=== PATIENT | male | born 1930 | race Caucasian/White ===

== ENCOUNTER → 2016-09-14 | Day surgery (SDC) | payer MEDICARE, OTHER ==
[~2016-09-14] MED LIST: ASPIRIN81 M2 PO; CLOPIDOGREL75 MG PO; LIPITOR PO; LISINOPRIL20 MG PO; NITRO-DUR1 EAC1; TOPROL XL100 MG PO
== END | disposition home or self-care (01) ==
LOC: CCSC 11:39
DX: M51.26 Other intervertebral disc displacement, lumbar region (principal); Z53.9 Procedure and treatment not carried out, unspecified reason
CPT/HCPCS: J1040; J2250

== ENCOUNTER → 2016-09-21 | Day surgery (SDC) | payer MEDICARE, OTHER ==
--- NOTE | ~2016-09-21 | OR ---
Unit #: [id number] #: [id number] Patient: CRISTIAN WYNNE [id number] [address] [address] [id number] O MR#: [id number] NAME: CRISTIAN WYNNE. ROOM: Date of Procedure: 09/21/2016 Admission Date: 09/21/2016 Surgeon: Asael Sterling M.D. : 1930 Attending Physician: Asael Sterling M.D. Primary Care Physician: Nayeli Lawrence M.D. SURGERY CENTER OPERATIVE NOTE PROCEDURE PERFORMED Lumbar epidural steroid injection under x-ray guided needle placement. PREOPERATIVE DIAGNOSES 1. Acute lumbar radiculitis. 2. Spinal stenosis, lumbosacral spine. 3. Herniated disk, L4-L5. 4. Herniated disk, L5-S1. 5. Degenerative joint disease, lumbosacral spine. 6. Degenerative disk disease, lumbosacral spine. 7. Facet arthrosis, lumbosacral spine. INDICATIONS FOR PROCEDURE The patient presents today with longstanding history of chronic lumbar radicular pain secondary to his underlying degenerative processes. He also has symptoms and signs compatible with facet arthralgia as well as x-ray documentation of underlying disk Borders, which would contribute to both of these painful symptoms. His pain is broken through his ongoing continuous conservative measures and is advancing in a crescendo pattern to the point that it is interfering with his activities of daily living. After discussing risks and benefits of proceeding today with a lumbar epidural steroid injection with a return date of 10/05/2016, the patient agreed this would be the appropriate course of action. We also discussed a referral to [facility] for potential facet joint with radiofrequency ablation therapy. DESCRIPTION OF PROCEDURE Following these discussion, the patient was taken to the operating room, where he was prepped and draped in a sterile manner. Standard monitors were applied. He refused all forms of sedation and lumbar epidural space was accessed at the L4-L5 level using loss of resistance technique and x-ray guidance. Needle placement was confirmed with the injection of 2 mL of Omnipaque. Approximately 80% of dye flow was in the superior direction. Following successful needle placement confirmation at the L4-L5 level with a total x-ray time of 9 seconds, the patient received an injectate containing 4 mL normal saline, 80 mg of methylprednisolone. He tolerated this procedure well and was discharged home with followup instructions, which include return dates as described above. At that point, he will most likely receive a dual needle L5-S1, L3-L4 injection. Dictated by.Raghavendra. Asael Sterling M.D. Unit #: [id number] #: [id number] Patient: CRISTIAN WYNNE ROEL/sha TD: 09/21/2016 21:46 JOB #: [id number] SURGERY CENTER OPERATIVE NOTE Page 1 of 1 X Fantasma Sterling MD X PROCEDURE OPERATIVE NOTE
== END | disposition home or self-care (01) ==
LOC: CCSC 10:04
DX: M51.16 Intervertebral disc disorders with radiculopathy, lumbar region (principal); M51.17 Intervertebral disc disorders with radiculopathy, lumbosacral region; M48.07 Spinal stenosis, lumbosacral region
CPT/HCPCS: J1040; J2250

== ENCOUNTER → 2016-10-05 | Day surgery (SDC) | payer MEDICARE, OTHER ==
--- NOTE | ~2016-10-05 | OR ---
Unit #: [id number] #: [id number] Patient: CRISTIAN WYNNE [id number] [address] [address] [id number] O MR#: [id number] NAME: CRISTIAN WYNNE. ROOM: Date of Procedure: 10/05/2016 Admission Date: 10/05/2016 Surgeon: Asael Sterling M.D. : 1930 Attending Physician: Fantasma Sterling Primary Care Physician: Nayeli Lawrence M.D. SURGERY CENTER OPERATIVE NOTE PROCEDURE PERFORMED Lumbar epidural steroid injection under x-ray guided needle placement. PREOPERATIVE DIAGNOSES 1. Acute lumbar radiculitis. 2. Spinal stenosis, lumbosacral spine. 3. Degenerative joint disease, lumbosacral spine. 4. Degenerative disk disease, lumbosacral spine. INDICATIONS FOR PROCEDURE The patient presents today status post one previous lumbar approach epidural steroid injection for an acute radiculitis, which had failed to respond to conservative therapy. He has a [facility] consult pending for potential facet joint injections with radiofrequency ablation. As far as the epidural for his radicular pain goes, he states that he got excellent results with almost 100% resolution of his symptoms. However, in the intervening time between his initial visit and today's visit, he has had the return of his symptoms in a crescendo pattern, which has reached a point where they are interfering with his activities of daily living. This return of his pain has broken through his usual and ongoing continuous conservative measures. After discussing the risks and benefits of proceeding today with a lumbar approach epidural steroid injection utilizing dual needle access technique, the patient agreed this would be the appropriate course of action. DESCRIPTION OF PROCEDURE He was then taken to the operating room, where he was prepped and draped in sterile manner. Standard monitors were applied. He was sedated with no medications. He refused all forms of sedation, and the lumbar epidural space accessed at the L5-S1 and the L3-4 levels using loss of resistance technique and x-ray guidance. Needle placement was confirmed with the injection of 2 mL of Omnipaque at each level. At the L5-S1 level, there was almost 80% flow in the inferior direction. However, at the L3-4 level, there was good flow superiorly and inferiorly to the point that we did feel we got adequate L4-5 coverage with this dual needle placement today. Following successful needle placement confirmation, which required an x-ray time of 9 seconds, the patient received an injectate containing 4 mL of normal saline, 40 mg of methylprednisolone at each site for a total injectate volume of 8 mL of normal saline and 80 mg of methylprednisolone. He tolerated this procedure well. He was discharged home with followup instructions, which include an offer to return to this clinic as early as 01/11/2017 if we could be of further service to him. He was instructed if he was asymptomatic at that time, to simply follow up with this clinic Unit #: [id number] #: [id number] Patient: CRISTIAN WYNNE and/or his primary and referring provider until such time as we could be of service. Dictated by... Preston De La O/sha TD: 10/05/2016 13:53 JOB #: [id number] SURGERY CENTER OPERATIVE NOTE Page 1 of 1 X Fantasma Sterling MD PROCEDURE OPERATIVE NOTE
== END | disposition home or self-care (01) ==
LOC: CCSC 09:25
DX: M51.17 Intervertebral disc disorders with radiculopathy, lumbosacral region (principal); M47.27 Other spondylosis with radiculopathy, lumbosacral region; M48.06 Spinal stenosis, lumbar region
CPT/HCPCS: J1040; J2250

== ENCOUNTER → 2017-01-11 | Day surgery (SDC) | payer MEDICARE, OTHER ==
--- NOTE | ~2017-01-11 | OR ---
Unit #: [id number] #: [id number] Patient: CRISTIAN WYNNE [id number] [address] [address] [id number] O MR#: [id number] NAME: CRISTIAN WYNNE. ROOM: Date of Procedure: 01/11/2017 Admission Date: 01/11/2017 Surgeon: Asael Sterling M.D. : 1930 Attending Physician: Asael Sterling M.D. Primary Care Physician: Nayeli Lawrence M.D. SURGERY CENTER OPERATIVE NOTE PROCEDURE PERFORMED Lumbar epidural steroid injection under x-ray guided needle placement. PREOPERATIVE DIAGNOSES 1. Acute lumbar radiculitis. 2. Spinal stenosis, lumbosacral spine. 3. Anterolisthesis, L3-L4. 4. Degenerative joint disease, lumbosacral spine. 5. Degenerative disk disease, lumbosacral spine. INDICATIONS FOR PROCEDURE The patient presents today status post 2 previous epidural steroid injections occurring approximately 3 to 4 months ago for an acute radiculitis, which had failed to respond to conservative therapy. The patient states he got good relief; however, relief was not complete nor was completely long-lasting and over the course of the past 3 months, his pain is increased to the point that he now has return of his symptoms and requests an epidural steroid injection. His original amount of relief was greater than 60% for greater than 6 to 8 weeks. He also during this interval time period underwent median nerve block by DX. He did not understand or was not able to schedule a return for radiofrequency ablation if indicated and therefore, we will re-refer him to [facility] because from my reading of his notes it appears that the patient has successful median nerve block, but did not receive radiofrequency ablation. Following discussion of return to [facility] plus an epidural steroid injection today with the potential for dual needle access, the patient agreed this would be the appropriate course of action. DESCRIPTION OF PROCEDURE He was then taken to the operating room, where he was prepped and draped in a sterile manner. Standard monitors were applied. He refused all forms of sedation and lumbar epidural space accessed at the L3-L4 level using loss of resistance technique and x-ray guidance. Needle placement was confirmed with injection of 2 mL of Omnipaque. Almost all dye flow was in the superior direction. Therefore, second needle was accessed at the L4-L5 level again using loss of resistance technique and x-ray guidance. Again, needle placement was confirmed with injection of 2 mL of Omnipaque. At this point, approximately 80% of the L4-L5 dye was in the superior direction with some inferior flow. This was considered acceptable. Following successful needle placement confirmation, the patient received 4 mL normal saline and 40 mg of methylprednisolone at the L3-L4 level and at the L4-L5 level for a total injectate volume of 8 mL normal saline and 80 mg of methylprednisolone. He tolerated this Unit #: [id number] #: [id number] Patient: CRISTIAN WYNNE S procedure well. He was discharged home with followup instructions, which include offer to return this clinic as early as 04/19/2017 if we could be of further service to him. He was further re-referred to [facility] for potential radiofrequency ablation. Dictated by... Preston De La O/sha TD: 01/11/2017 13:36 JOB #: [id number] CC: Edgar Lawrence M.D. SURGERY CENTER OPERATIVE NOTE Page 1 of 1 X Fantasma Sterling MD X PROCEDURE OPERATIVE NOTE
== END | disposition home or self-care (01) ==
LOC: CCSC 07:50
DX: M51.17 Intervertebral disc disorders with radiculopathy, lumbosacral region (principal); M47.27 Other spondylosis with radiculopathy, lumbosacral region; M43.16 Spondylolisthesis, lumbar region; M48.07 Spinal stenosis, lumbosacral region; I25.10 Atherosclerotic heart disease of native coronary artery without angina pectoris; Z79.02 Long term (current) use of antithrombotics/antiplatelets; Z79.82 Long term (current) use of aspirin; Z95.1 Presence of aortocoronary bypass graft
CPT/HCPCS: J1040; J2250